=== PATIENT | female | born 1985 | race Caucasian/White ===

== ENCOUNTER 2019-04-22 00:07 | Emergency (ER) | payer BC ==
[~2019-04-22] VITALS: Ht 165.1 cm; Wt 109.3 kg
[~2019-04-22 00:07] MED LIST: [UNRECOGNIZED DRUG - OTHER] PO
--- OUTSIDE RECORDS SUMMARY | 2019-04-22 00:11 | XMS REPORT | Summary of Care ---
Author Author [facility] Address Unknown Phone Unavailable Encounter Ary_alban(ADDIE) [id number] Date(s): 05/01/18 - 05/30/18 [facility] Discharge Disposition: Home or Self Care Attending Physician: VIRGIL GREER Vital Signs No data available for this section Problem List No data available for this section Allergies, Adverse Reactions, Alerts No data available for this section Medications No data available for this section Results No data available for this section Immunizations No data available for this section Procedures No data available for this section Social History No data available for this section Assessment and Plan No data available for this section
--- OUTSIDE RECORDS SUMMARY | 2019-04-22 00:11 | XMS REPORT | Summary of Care ---
Author Author [facility] Outpatient Imaging [facility] Address Unknown Phone Unavailable Encounter HQ Encntr_alban(FIN) [id number] Date(s): 04/21/18 - 04/21/18 [facility] Outpatient Imaging [facility] [address] [facility], [address] [place], [place] [address] [phone] Discharge Disposition: Home or Self Care Attending Physician: Helio Odell MD Vital Signs No data available for this [...]
--- OUTSIDE RECORDS SUMMARY | 2019-04-22 00:11 | XMS REPORT | Continuity of Care Document ---
Author Author [facility] [place] [place] Organization Interface Address Unknown Phone Unavailable Problems Problem Status Onset Date Classification Date Reported Comments Source LBP Active 04/28/2018 [facility] [place] M54.5 - LOW BACK PAIN Active 04/21/2018 [facility] Medications Medication Details Route Status Patient Instructions Ordering Provider Order Date Source Allergies, Adverse Reactions, Alerts Substance Category Reaction Severity Reaction type Status Date Reported Comments Source Immunizations Immunization Date Given Site Status Last Updated Comments Source Results Order Name Results Value Reference Range Date Interpretation Comments Source Spine lumbar series DX Spine lumbar series DX EXAM: XR LUMBAR SPINE 5 VIEWS DATE: 04/21/2018 0959 hours INDICATION: M54.5 Low back pain COMPARISON: None available TECHNIQUE: AP, lateral, coned lateral, LPO and RPO radiographs of the lumbar spine FINDINGS: 5 nonrib bearing, lumbar-type vertebral bodies are present. Vertebral body heights and disc heights are preserved. There is mild spondylosis at T12- L1. No spondylolisthesis. No soft tissue abnormality is identified. Cholecystectomy clips are noted. IMPRESSION: Mild spondylosis at T12-L1. Otherwise no radiographic abnormality of the lumbar spine. 04/21/2018 - - This report was dictated by a [employer] Supervisor/Fellow. I have personally reviewed the images as well as the Resident's interpretation and agree with the findings. Read by: Kaniak Phillips MD Resident: Kanika Phillips MD Dictated Date/time: 04/21/18 10:16 Electronically Signed by: Angelo Miller MD 04/21/18 13:22 FINAL REPORT [facility] Vital Signs Vital Sign Value Date Comments Source Encounters Location Location Details Encounter Type Encounter Number Reason For Visit Attending Provider ADM Date DC Date Status Source [facility] [id number] Helio Odell 04/21/2018 04/22/2018 [facility] [place] [facility] Patients [id number] VIRGIL SEGURAANG 05/01/2018 05/31/2018 [facility] [place] Procedures Procedure Code Date Perfomer Comments Source
[2019-04-22] MEDS ORDERED: ONDANSETRON HCL INJ 2MG/ML 2ML 2 MG/ML VIAL IV STA ×2 (00:15→01:31)
[2019-04-22 00:37] LABS: BASOPHILS % 0.3 % (0.0-1.0); EOSINOPHILS # (AUTO) 0.2 (0.0-0.4); EOSINOPHILS % 1.9 % (0.0-6.0); HEMATOCRIT 37.7 % (34.2-44.1); HEMOGLOBIN 12.1 g/dL (12.0-16.0); LYMPHOCYTES # (AUTO) 3.8 (1.0-3.2); LYMPHOCYTES % 37.1 % (18.0-39.1); MEAN CORPUSCULAR HEMOGLOBIN 26.5 pg (28-32); MEAN CORPUSCULAR HGB CONC 32.1 g/dL (31-35); MEAN CORPUSCULAR VOLUME 82.7 fL (81-99); MONOCYTES # (AUTO) 0.7 (0.2-0.8); MONOCYTES % 6.3 % (4.4-11.3); NEUTROPHILS # (AUTO) 5.6 (2.1-6.9); NEUTROPHILS % 54.1 % (38.7-80.0); PLATELET COUNT 234 x10e3/uL (140-360); RED BLOOD COUNT 4.56 x10e6/uL (3.6-5.1); RED CELL DISTRIBUTION WIDTH 13.2 % (11.7-14.4)
[2019-04-22 00:39] LABS: BILIRUBIN,URINE NEGATIVE (NEGATIVE); CLARITY,URINE CLOUDY (CLEAR); COLOR,URINE YELLOW (YELLOW); KETONES,URINE NEGATIVE (NEGATIVE); LEUKOCYTE ESTERASE ,URINE SMALL (NEGATIVE); NITRITE,URINE NEGATIVE (NEGATIVE); PROTEIN,URINE DIPSTICK NEGATIVE (NEGATIVE); URINE UROBILINOGEN 0.2 mg/dL (0.2 - 1)
[2019-04-22 00:44] LABS: PREGNANCY TEST, URINE NEGATIVE (NEGATIVE)
[2019-04-22] MEDS ORDERED: KETOROLAC TROMETHAMINE 30 MG/ML VIAL IV STA (00:50)
[2019-04-22 00:53] LABS: BACTERIA,URINE MODERATE /HPF; EPITHELIAL CELLS,URINE FEW /LPF
[2019-04-22 00:59] LABS: ALANINE AMINOTRANSFERASE 16 IU/L (0-55); ALBUMIN 4.1 g/dL (3.5-5.0); ALBUMIN/GLOBULIN RATIO 1.2 (0.8-2.0); ALKALINE PHOSPHATASE 50 IU/L (40-150); ANION GAP 12.6 mmol/L (8-16); BLOOD UREA NITROGEN 12 mg/dL (7-26); BUN/CREATININE RATIO 17 (6-25); CALCIUM 9.6 mg/dL (8.4-10.2); CARBON DIOXIDE 25 mmol/L (22-29); CHLORIDE 104 mmol/L (98-107); CREATININE, SERUM 0.69 mg/dL (0.57-1.11); EST GLOMERULAR FILTRATION RATE > 60 ML/MIN (60-); GLUCOSE 101 mg/dL (74-118); POTASSIUM 3.6 mmol/L (3.5-5.1); SODIUM 138 mmol/L (136-145)
[2019-04-22] MEDS ORDERED: HYDROMORPHONE 2MG/ML 2 MG/ML ML IV ONE (01:45)
--- NOTE | 2019-04-22 01:46 | Diagnostic Imaging Report ---
EXAM: CT Abdomen and Pelvis WITHOUT contrast INDICATION: ^left flank pain ^[id number] ^0100 ^Y COMPARISON: CT dated 01/17/2013 TECHNIQUE: Abdomen and pelvis were scanned utilizing a multidetector helical scanner from the lung base to the pubic symphysis without administration of IV contrast. Absence of intravenous contrast decreases sensitivity for detection of focal lesions and vascular pathology. Coronal and sagittal reformations were obtained. Routine protocol was performed. IV CONTRAST: None ORAL CONTRAST: Water COMPLICATIONS: None RADIATION DOSE: Total DLP: 779.6 mGy*cm Estimated effective dose: (DLP x 0.015 x size factor) mSv CTDIvol has been reviewed. It is below the limits set by the Radiation Protocol Committee (RPC). FINDINGS: LINES and TUBES: None. LOWER THORAX: Stable 3 mm left lower lobe nodule since 2013, likely benign (series 3, image 7). HEPATOBILIARY: Unenhanced liver is unremarkable. No biliary ductal dilation. GALLBLADDER: Surgically absent. SPLEEN: No splenomegaly. PANCREAS: No focal masses or ductal dilatation. ADRENALS: No adrenal nodules KIDNEYS/URETERS: No hydronephrosis. No cystic or solid mass lesions. No stones. GI TRACT: No abnormal distention, wall thickening, or evidence of bowel obstruction. Appendix is unremarkable, containing an appendicolith in the midportion. PELVIC ORGANS/BLADDER: Unremarkable. LYMPH NODES: No lymphadenopathy. Again seen increased number of subcentimeter right mesenteric lymph nodes. VESSELS: Unremarkable. PERITONEUM / RETROPERITONEUM: No free air or fluid. BONES: Unremarkable. SOFT TISSUES: Unremarkable. IMPRESSION: 1. No nephrolithiasis or evidence of obstructive urolithiasis. Signed by: Dr. Yves Bob MD on 04/22/2019 1:43 AM
[2019-04-22] MEDS ORDERED: CEFTRIAXONE SOD 1 GM/NS 50 ML 50 ML IV ONE (02:00)
[2019-04-22 02:01] VITALS: BP 142/89
[2019-04-22] MEDS ORDERED: PROMETHAZINE HCL (IM) 25 MG/ML VIAL IM ONE (02:30)
[2019-04-22] MEDS ORDERED: PROMETHAZINE HCL (IM) 25 MG/ML VIAL ONE (02:35)
== END 2019-04-22 02:50 | disposition home or self-care (01) ==
LOC: ER 00:07
DX: N30.01 Acute cystitis with hematuria (principal); N23 Unspecified renal colic; K21.9 Gastro-esophageal reflux disease without esophagitis; Z90.49 Acquired absence of other specified parts of digestive tract; Z82.49 Family history of ischemic heart disease and other diseases of the circulatory system
CPT/HCPCS: 36415; 74176; 80053; 81001; 81025; 85025; 96372; 96374; 96375; 96376; 99284; J0696; J1170; J1885; J2405; J2550